=== PATIENT | male | born 1955 | race Asian ===

== ENCOUNTER 2018-07-15 06:22 | Day surgery (SDC) | payer BC ==
[2018-07-15] MEDS ORDERED: PROPOFOL 40 ML (07:27)
[2018-07-15] MEDS ORDERED: LIDOCAINE 2% (SDV) 5 ML INJ (07:27)
[2018-07-15] MEDS ORDERED: MIDAZOLAM 1 MG/ML 2 ML INJ (07:28)
[2018-07-15] MEDS ORDERED: ACETAMINOPHEN 1000MG/100ML IV 100 ML IVPB (08:00)
[2018-07-15] MEDS ORDERED: ONDANSETRON 4 MG INJ IV (08:00)
== END 2018-07-15 12:13 | disposition home or self-care (01) ==
LOC: GIL 06:22
DX: Z12.11 Encounter for screening for malignant neoplasm of colon (principal); D12.0 Benign neoplasm of cecum; K29.50 Unspecified chronic gastritis without bleeding; D12.7 Benign neoplasm of rectosigmoid junction; I10 Essential (primary) hypertension; E78.5 Hyperlipidemia, unspecified; K64.4 Residual hemorrhoidal skin tags
CPT/HCPCS: 43239; 88305; 88312